=== PATIENT | female | born 1935 | race Caucasian/White ===

== ENCOUNTER 2022-02-13 14:28 | Emergency (ER) | payer OTHER, MEDICARE ==
[2022-02-13 14:50] VITALS: BP 152/74; PULSE 87; RESP 20; TEMP 98.7; BMI 22.6
== END 2022-02-13 17:10 | disposition home or self-care (01) ==
LOC: SUPCPDRO 14:28 → FER 14:28
DX: S09.90XA Unspecified injury of head, initial encounter (principal); S05.12XA Contusion of eyeball and orbital tissues, left eye, initial encounter; W01.0XXA Fall on same level from slipping, tripping and stumbling without subsequent striking against object, initial encounter; W22.8XXA Striking against or struck by other objects, initial encounter
CPT/HCPCS: 70450-TC; 70486-TC; 99284-25

== ENCOUNTER 2022-04-27 15:42 | Emergency (ER) | payer OTHER, MEDICARE ==
[2022-04-27 16:15] VITALS: BP 155/70; PULSE 84; RESP 18; TEMP 97.7; BMI 22.6
== END 2022-04-27 17:30 | disposition home or self-care (01) ==
LOC: FER 15:42
DX: I87.2 Venous insufficiency (chronic) (peripheral) (principal)
CPT/HCPCS: 93971-TC; 99283-25